=== PATIENT | female | born 1975 | race Asian ===

== ENCOUNTER 2019-02-12 17:05 | Emergency (ER) | payer BC ==
[~2019-02-12] VITALS: Ht 154.9 cm; Wt 63.5 kg
[~2019-02-12 17:05] MED LIST: ATIVAN1 MG PO
[2019-02-12 17:30] LABS: BASOPHILS 0.8 % (0.0-2.0); EOSINOPHILS 1.1 % (0.0-3.0); HEMATOCRIT 38.4 % (37.0-47.0); LYMPHOCYTES 23.7 % (24.0-44.0); MCH 30.4 pg (26.0-34.0); MCHC 33.8 g/dL (28.0-37.0); MCV 89.9 fL (80.0-100.0); MONOCYTES 5.6 % (1.0-8.0); PLATELET COUNT 314 thou/uL (150-400); POLYS 68.8 % (36.0-66.0); RBC 4.27 mil/uL (4.20-5.00); RDW 14.4 % (10.5-14.5); WBC 7.3 thou/uL (4.0-11.0)
[2019-02-12 17:34] LABS: ANION GAP 10 mmol/L (7-16); BUN 17 mg/dL (7-18); CALCIUM 9.2 mg/dL (8.5-10.1); CHLORIDE 98 mmol/L (98-107); CO2 27 mmol/L (21-32); CREATININE 0.9 mg/dL (0.6-1.0); GLUCOSE 131 mg/dL (74-106); SODIUM 135 mmol/L (136-145)
[2019-02-12 17:37] LABS: POTASSIUM 4.2 mmol/L (3.5-5.1)
[2019-02-12 17:44] LABS: ALBUMIN 3.9 g/dL (3.4-5.0); SGOT 32 U/L (15-37); SGPT 35 U/L (30-65); TOTAL BILIRUBIN 0.2 mg/dL (<0.1-1.0); TOTAL PROTEIN 8.1 g/dL (6.4-8.2); TROPONIN-I <0.06 ng/mL (<0.06)
[2019-02-12] MEDS ORDERED: DOXYCYCLINE 10100 MG PO ×2 (18:34→19:17)
[2019-02-12 19:45] VITALS: BP 147/98
--- NOTE | 2019-02-14 08:54 | EKG ---
[address] [address] ELECTROCARDIOGRAM REPORT Name: CLOVER BERG [facility] [id number] ������������������ Admission: 02/12/19 ������������������ Attend Phys: Discharge: 02/12/19 ������������������ Date of : 79 Report #: [id number] ����������������������������������������������������������������� [id number] THIS REPORT FOR: //name// [facility] ED Test Date: 2019-02-12 Test Time: 17:10:53 Pat Name: CLOVER BERG Department: Room: Gender: F Correction Warden: RODRI : 1975 Requested By: Nasir Montoya Order Number: [id number] MD: Ramon Espitia Measurements Intervals [place] Rate: 106 P: 56 CO: 137 QRS: 106 QRSD: 140 T: 31 QT: 372 QTc: 494 Interpretive Statements Sinus tachycardia RBBB and LPFB Compared to ECG 07/01/2016 15:52:59 No significant changes Electronically Signed On 02-14-2019 8:54:09 CDT by Ramon Espitia [email or web address] ��������������������������������������������� <ELECTRONICALLY SIGNED> ���������������������������������������� By: Ramon Espitia MD, [facility] ��������������������������������������������� 02/14/19 0854 D: 07/1709 09 Ramon Espitia MD, FACC /EPI
== END 2019-02-12 19:45 | disposition home or self-care (01) ==
LOC: ER 17:05
PROVIDERS: Emergency Medicine
DX: J18.9 Pneumonia, unspecified organism (principal); R07.89 Other chest pain; I10 Essential (primary) hypertension; F41.9 Anxiety disorder, unspecified; F17.210 Nicotine dependence, cigarettes, uncomplicated